=== PATIENT | female | born 1950 | race Two or more races ===

== ENCOUNTER → 2016-11-10 | Outpatient (CLI) | payer OTHER ==
[2016-09-03 10:30] VITALS: BP 116/68
[~2016-11-10] MED LIST: OXYC5TAB PO
--- NOTE | 2016-11-10 11:36 | RAD ---
EXAM: MAMMO CASSANDRA DIAG BILAT, BREAST BILATERAL. HISTORY: History of bilateral breast discharge, more so on the right. Discharge is primarily clear, but had one episode of brownish-yellowish discharge. COMPARISON: Previous breast imaging was performed in [place] and is consequently not available. FINDINGS: 2-D and 3-D tomosynthesis mammograms were obtained of both breasts in the CC and MLO projections. Computer-aided detection (CAD) was utilized. The breast parenchyma demonstrate scattered fibroglandular densities (tissue density B). No dominant suspicious mass, suspicious microcalcifications, or architectural distortion is identified. Scattered, benign-appearing calcifications are present within both breasts. Bilateral whole breast ultrasound was performed around the clock face as well as in the bilateral retroareolar regions. The right breast demonstrates mild retroareolar duct ectasia. No solid or cystic masses are seen involving the right breast. The left breast demonstrates mild retroareolar duct ectasia. No solid or cystic masses are identified. IMPRESSION: 1. Mild bilateral breast duct ectasia. 2. No solid or cystic masses are identified by ultrasound or by mammography. BI-RADS CATEGORY: 2 BENIGN FINDING RECOMMENDED FOLLOW-UP: 12M 12 MONTH FOLLOW-UP PQRS compliance statement: Patient information was entered into a reminder system with a target due date for the next mammogram. Mammography is a sensitive method for finding small breast cancers, but it does not detect them all and is not a substitute for careful clinical examination. A negative mammogram does not negate a clinically suspicious finding and should not result in delay in biopsying a clinically suspicious abnormality. "Our facility is accredited by the [employer] Mammography Program."
== END | disposition home or self-care (01) ==
LOC: MAMMO 10:01
PROVIDERS: ATTEND Nurse Practitioner
DX: N64.3 Galactorrhea not associated with childbirth (principal)
CPT/HCPCS: 76641; G0204; G0279; 77062; 77066

== ENCOUNTER → 2016-12-22 | Outpatient (CLI) | payer OTHER ==
[2016-09-03 10:30] VITALS: BP 116/68
--- NOTE | 2016-12-22 12:56 | RAD ---
Left knee, 3 views, 12/22/2016: History: Pain There is moderate spurring at the knee joint. There is mild sclerosis and articular irregularity along the tibial aspect of the lateral compartment of the knee joint. Chondrocalcinosis is present. There is moderate spurring at the patellofemoral articulation. No acute fracture or dislocation is identified. IMPRESSION: 1. Moderate degenerative change. 2. Chondrocalcinosis. 3. No acute bony abnormality is detected.
--- NOTE | 2016-12-22 12:57 | RAD ---
Left hip, 2 views, 12/22/2016: History: Hip pain The hip joint space is well-preserved with only minimal marginal spurring. No fracture or dislocation is identified. The periarticular soft tissues are unremarkable. IMPRESSION: No acute left hip abnormality is detected.
== END | disposition home or self-care (01) ==
LOC: LAB 11:52
PROVIDERS: ATTEND Nurse Practitioner
DX: M16.12 Unilateral primary osteoarthritis, left hip (principal); M11.252 Other chondrocalcinosis, left hip; M11.262 Other chondrocalcinosis, left knee; M17.12 Unilateral primary osteoarthritis, left knee
CPT/HCPCS: 73502; 73562

== ENCOUNTER → 2016-12-30 | Outpatient (CLI) | payer OTHER ==
[2016-09-03 10:30] VITALS: BP 116/68
--- NOTE | 2016-12-30 15:17 | RAD ---
Indication chronic pain. AP and lateral views of the lumbar spine were obtained as well as a coned view targeted to the lumbosacral junction. Vertebral height is well maintained. There is mild spondylolisthesis at L4-5. There is disc space narrowing with associated vacuum disc phenomenon and degenerative endplate changes at L5-S1. There are facet degenerative changes most pronounced at L4-5 and L5-S1. Some vascular calcification is noted. An acute finding is not seen. IMPRESSION: Spondylitic changes. No acute finding seen
== END | disposition home or self-care (01) ==
LOC: DXRAD 14:50
PROVIDERS: ATTEND Family Medicine
DX: M46.86 Other specified inflammatory spondylopathies, lumbar region (principal); G89.29 Other chronic pain
CPT/HCPCS: 72100

== ENCOUNTER → 2018-07-07 | Outpatient (CLI) | payer OTHER ==
[2016-09-03 10:30] VITALS: BP 116/68
[~2018-07-07] MED LIST changes: -OXYC5TAB PO; +OXYC5TAB4 PO
--- NOTE | 2018-07-07 16:12 | RAD ---
DATE: 07/07/2018 EXAM: DIGITAL DIAGNOSTIC BILATERAL, BREAST BILATERAL HISTORY: Chronic bilateral nipple discharge COMPARISON: 11/10/2016 This study was interpreted with the benefit of Computerized Aided Detection (CAD). Breast Density: SCATTERED The breast parenchyma shows scattered fibroglandular densities. Breast parenchyma level B. FINDINGS: No new or enlarging breast densities are seen. A couple of scattered benign type calcifications are noted. No suspicious microcalcifications have developed. . Bilateral breast ultrasound, 07/07/2018: Both breasts were carefully scanned. Comparison is made to a study from 11/10/2016. Several small retroareolar ducts are again noted bilaterally compatible with minimal ductal ectasia. One small duct at the 7:00 location the right breast does demonstrate some echogenic debris. No internal vascularity is seen to suggest a mass. IMPRESSION: 1. Stable mammograms without evidence of malignancy. 2. Minimal ductal ectasia in the retroareolar regions. 3. Small amount of debris within a duct at 7:00 location in the right breast. Further sonographic surveillance on the right is suggested, beginning in 6 months. Galactography on the right could also be considered for further evaluation. BI-RADS CATEGORY: 3 PROBABLY BENIGN FINDING(S)-SHORT INTERVAL FOLLOW-UP SUGGESTED RECOMMENDED FOLLOW-UP: 6M 6 MONTH FOLLOW-UP PQRS compliance statement: Patient information was entered into a reminder system with a target due date for the next mammogram. Mammography is a sensitive method for finding small breast cancers, but it does not detect them all and is not a substitute for careful clinical examination. A negative mammogram does not negate a clinically suspicious finding and should not result in delay in biopsying a clinically suspicious abnormality. "Our facility is accredited by the [employer] Mammography [employer]."
== END | disposition home or self-care (01) ==
LOC: MAMMO 13:56
DX: N60.42 Mammary duct ectasia of left breast (principal); N60.41 Mammary duct ectasia of right breast; I10 Essential (primary) hypertension; R73.03 Prediabetes
CPT/HCPCS: 76641; 77066

== ENCOUNTER → 2019-03-04 | Outpatient (CLI) | payer OTHER ==
[2016-09-03 10:30] VITALS: BP 116/68
--- NOTE | 2019-03-04 17:16 | RAD ---
EXAM: AP pelvis, AP and lateral views of both hips DATE: 03/04/2019 12:00 AM INDICATION: Bilateral hip pain COMPARISON: No Prior FINDINGS: No evidence of acute fracture or dislocation. Joint spaces are preserved without significant degenerative/proliferative change. Moderate colonic stool content is seen. IMPRESSION: No evidence for acute fracture or dislocation. Electronically signed by: Hamilton Jimenez MD (03/04/2019 5:12 PM) [facility]
== END | disposition home or self-care (01) ==
LOC: RAD 14:03
PROVIDERS: ATTEND Nurse Practitioner Family
DX: M25.551 Pain in right hip (principal); M25.552 Pain in left hip
CPT/HCPCS: 73521